=== PATIENT | female | born 1945 ===

== ENCOUNTER → 2018-02-04 | Day surgery (SDC) | payer OTHER ==
[~2018-02-04] MED LIST: ASTAXANTHIN4 MG PO; ATORVASTATIN CA10 MG PO; CALCIUM500 M1 PO; GLUCOSAMINE &1 EAC1 PO; LEVOTHYROXINE88 MCG PO; PERCOCET 5-3251 EACH PO; RANITIDINE HCL150 M1 PO; VITAMIN C100 MG PO
== END | disposition home or self-care (01) ==
LOC: ADM 01-31 11:30 → CIR.AMB 05:36
DX: N81.11 Cystocele, midline (principal)

== ENCOUNTER 2022-11-01 07:34 | Outpatient (CLI) | payer OTHER | END 2022-11-01 07:42 | disposition home or self-care (01) | LOC: RX STUDY 07:34 | DX: R13.14 Dysphagia, pharyngoesophageal phase (principal); M25.511 Pain in right shoulder; M25.562 Pain in left knee ==